=== PATIENT | male | born 1995 | race Caucasian/White ===

== ENCOUNTER → 2017-01-06 | Outpatient (CLI) | payer OTHER ==
--- NOTE | 2017-01-06 09:57 | DIAGNOSTIC IMAGING REPORT ---
TESTICULAR ULTRASOUND CLINICAL HISTORY: Testicular mass COMPARISON STUDY: No previous studies for comparison. FINDINGS: The right testis measures 41 x 19 x 28 mm. The left testis measures 39 x 21 x 29 mm. No intratesticular masses are visualized. There is a cluster of calcifications within the right testis measuring 1.4 mm in aggregate. There is no evidence of testicular torsion. There is a small left-sided hydrocele. There is a cluster of calcifications within the left scrotum medial to the left testis. IMPRESSION: 1. No evidence of intratesticular mass 2. No evidence of testicular torsion 3. 6 mm extratesticular partially calcified nodule within the left hemiscrotum. Electronically signed by: Matt Sheth M.D. 01/06/2017 9:55 AM Dictated Date/Time: 01/06/2017 9:52 AM
== END | disposition home or self-care (01) ==
LOC: C.ULTR 09:25
PROVIDERS: ATTEND Family Medicine
DX: N49.2 Inflammatory disorders of scrotum (principal)